=== PATIENT | female | born 1960 | race Caucasian/White ===

== ENCOUNTER 2016-11-17 05:26 | Day surgery (SDC) | payer BC, OTHER ==
[~2016-11-17] VITALS: Ht 152.4 cm; Wt 74.3 kg
--- NOTE | ~2016-11-17 | H ---
[facility] [place] [address] HISTORY AND PHYSICAL Name: TEA CAVAZOS Room #: 150-4 [facility]..#: [id number] Admission: 11/17/16 Attend Phys: Geremias Cristina MD Discharge: Date of : 60 Report #: [id number] THIS REPORT FOR: //name// CC: FAM unknown Geremias Cristina ANTICIPATED DATE OF SURGERY: 11/14/2016. CHIEF COMPLAINT: Chronic rhinosinusitis. HISTORY OF PRESENT ILLNESS: The patient presented to clinic in June of this year with a several year history of constant sinus and nasal airway obstruction despite use QNASL nasal spray, Afrin, Azelastine spray, Zyrtec and Singulair. She has already seen an chemical production machine operator who did not recommend any further treatment as her sinuses were "clear." At that time, she had likely had chronic sinusitis, poorly controlled allergic rhinitis with conservative course of long-term medical therapy with followup CT scan at that time. Return visit in July did demonstrate with her and her significant other, the CT scan showed bilateral maxillary sinusitis, mild ethmoid mucoperiosteal thickening and turbinate hypertrophy and at that time, given the option of the surgical therapy involving the above areas. We also discussed the following chemical production machine operator to start injections for her allergies at that time. However, she returned in September and despite aggressive allergy management, she continued to have recurrent chronic sinus symptoms response to therapy. At that point, we discussed the option of pursuing further surgical on the therapy and she agrees. Plan will be for bilateral maxillary balloon sinuplasties, bilateral turbinate reductions and limited anterior ethmoidectomies under anesthesia. ALLERGIES TO MEDICATION: DOXYCYCLINE, KEFLEX, LEVAQUIN, PENICILLIN AND SULFA. MEDICATIONS ON ADMISSION: Atorvastatin 10 mg once a day, Azelastine nasal spray 2 puffs each nares daily, Dulera as needed, gabapentin 300 mg t.i.d., meloxicam 7.5 mg daily, Singulair 10 mg once a day, omeprazole 20 mg once a day, QNASL steroid spray 2 puffs each nares b.i.d. and Zyrtec 10 mg once a day. PAST MEDICAL AND PAST SURGICAL HISTORY: Notable for previous tubes at the younger age. Medical history is notable for the above-mentioned allergies, acid reflux disease and migraines. PHYSICAL EXAMINATION: VITAL SIGNS: Height of 5 feet, weight 170 pounds and blood pressure 116/74. HEENT: Unremarkable within the oral cavity, oropharynx. Nares demonstrated bilateral inferior turbinate hypertrophy with inferiorly straight nasal septum. NECK: Normal to palpation. CHEST: Clear. CARDIOVASCULAR: Regular rhythm. [address] [address] HISTORY AND PHYSICAL Name: TEA CAVAZOS Room #: 150-4 [facility].#: [id number] Admission: 11/17/16 Attend Phys: Geremias Cristina MD Discharge: Date of : 60 Report #: [id number] ASSESSMENT: History of chronic and recurrent rhinosinusitis with allergic rhinitis. PLAN: Will be the above-mentioned surgery. <ELECTRONICALLY SIGNED> By: Geremias Cristina MD 11/17/16 0927 19 [id number] Geremias Cristina MD /nt
--- NOTE | ~2016-11-17 | O ---
[facility] [place] [address] OPERATIVE REPORT Name: TEA CAVAZOS Room #: 150-4 [facility]#: [id number] Admission: 11/17/16 Attend Phys: Geremias Cristina MD Discharge: Date of : 60 Report #: [id number] THIS REPORT FOR: //name// CC: FAM unknown Geremias Cristina DATE OF SERVICE: 11/17/2016 PREOPERATIVE DIAGNOSIS: Sinusitis. POSTOPERATIVE DIAGNOSIS: Sinusitis. PROCEDURE: Image guided endoscopic left nasal antral window, image-guided endoscopic right nasal antral window, image-guided endoscopic left anterior ethmoidectomy, image-guided endoscopic right anterior ethmoidectomy, bilateral submucosal inferior turbinate resection with outfracturing. SURGEON: Geremias Cristina MD. ANESTHESIA: General LMA. INDICATIONS: See H and P. FINDINGS: Mild purulence is noted within the left maxillary sinus. Polypoid mucosa was noted covering the ethmoid bulla and the lateral nasal wall bilaterally. Turbinate hypertrophy was observed. TECHNIQUE: After obtaining consent, the patient was brought to the operating suite, appropriate time out was performed. General LMA anesthesia was maintained throughout the case. Bed was turned 90 degrees. The nose was prepped and draped in usual sterile fashion. Afrin impregnated cottonoids were placed inside the nasal cavity for vasoconstriction. A 3 mL of 1% Xylocaine 1:100,000 epinephrine was injected along the lateral nasal wall and the anterior face of the middle turbinate and the medial edge of the inferior turbinates on both sides. After waiting several minutes, cottonoids were then removed. Registration of the [employer] image-guided system was applied with points selected and confirmed accuracy. Image guidance system was used a combination of the suction on image guidance as well as the microdebrider blade. Attention was first turned to the right naris with endoscopic evaluation. The right middle turbinate was identified and medialized with [place]. The uncinate process was brought forward with double ball and entered into the maxillary ostia. The uncinate process was removed with combination of a side biter and a microdebrider blade. I then enlarged the maxillary ostia with a side biter and freshened the edges with the microdebrider. I then performed a limited anterior ethmoidectomy first dilating the ethmoid bulla with the microdebrider inferiorly [address] [address] OPERATIVE REPORT Name: TEA CAVAZOS Yuan Room #: 150-4 [facility].#: [id number] Admission: 11/17/16 Attend Phys: Geremias Cristina MD Discharge: Date of : 60 Report #: [id number] and proceeding in a posterior direction until the ground lamella was dilated and proceeded to find normal appearing posterior ethmoid air cells and I then proceeded up superiorly towards the fovea ethmoidalis, then proceeded more anteriorly saucerizing and opening most of the anterior ethmoid air cells. It should be noted that none were fully involved with polyps, but there were polypoid mucosa throughout. I carried this laterally towards the middle turbinate and entered into the uppermost portions of the anterior ethmoid air cells and once again encountered normal mucosa, so I did not fully saucerized the anterior ethmoids on the right side. Upon completing the anterior ethmoidectomy and ensuring there was no devitalized bone or mucosa, a piece of Xerogel was placed between the middle turbinate and lateral nasal wall for hemostasis. I then take a caudal elevator and made a small incision in the anterior medial portion of the inferior turbinate and elevated the submucosal flap on the inferior turbinate. The microdebrider blade was then used to perform a submucous resection. [place] elevator was used to outfracture the middle turbinate and another piece of Xerogel was then placed over the inferior turbinate incision. Attention was then turned to the left side. Once again, a similar procedure was performed first identifying endoscopically the uncinate processes to bring this forward with a double ball and removing it with both microdebrider and the side biter. I then entered into the maxillary ostia where I immediately encountered some purulent material. Upon enlarging the maxillary ostia with a biter and a microdebrider, I evacuated all the purulent material. It should be noted the mucosa within the maxillary sinus appeared to be very pink and normal, however. I then proceeded to do a limited ethmoidectomy in a similar fashion as on the right side. There was less polypoid tissue noted on the left than the right. I then turned my attention to the inferior turbinate where it was reduced in a submucosal fashion and a similar on the right side. I checked hemostasis on the left side, it was found to be adequate. A single piece of Xerogel was then placed between the middle turbinate and the ethmoid defect and another one was placed over the inferior turbinate. After waiting several minutes, I checked again for hemostasis, was found to be adequate. The nasopharynx was suctioned free of secretions. She was then allowed to wake from anesthesia and recovery room in stable condition. ESTIMATED BLOOD LOSS: Approximately 20 mL. By: [id number] Geremias Cristina MD /nt
--- NOTE | ~2016-11-17 | S ---
[facility] [address] [place] [address] SURGICAL PATH RPT PROCEDURE Name: TEA CAVAZOS Room #: 150-4 [facility] M.R.#: [id number] Admission: 11/17/16 Date of : 60 Discharge: Report #: [id number] Path Case #: [id number] PATHOLOGY REPORT DRAFT COLLECTION DATE: 11/17/2016 RECEIVED DATE: 11/17/2016 SPECIMEN(S) RECEIVED: A.Bilateral sinus contents
[~2016-11-17 05:26] MED LIST: AGGRENOX 25 MG1 EACH PO; AZELASTINE205.5 MCG/ NASAL; BENADRYL25 MG PO; CO Q-10100 MG PO; KRILL OIL 1,001 EAC1 PO; KRILL OIL 3001 EACH PO; LIPITOR10 MG PO; MOBIC7.5 MG PO; NEURONTIN 300300 M1 PO; NEURONTIN600 MG PO; OMEPRAZOLE 20 M20 M1 PO; QNASL8.7 GM NASAL; SINGULAIR 10 MG10 M1 PO; ZYRTEC10 M5 PO
[2016-11-17 09:27] VITALS: BP 106/71
[2016-11-17 11:08] VITALS: BP 106/71
== END 2016-11-17 12:00 ==
LOC: EDSEX → OR 05:26 → TBA 05:26 → OR 09:57
DX: J32.8 Other chronic sinusitis (principal); J34.3 Hypertrophy of nasal turbinates; J33.8 Other polyp of sinus; J45.909 Unspecified asthma, uncomplicated; E78.00 Pure hypercholesterolemia, unspecified; I69.898 Other sequelae of other cerebrovascular disease; Z87.891 Personal history of nicotine dependence; Z96.652 Presence of left artificial knee joint; Z88.0 Allergy status to penicillin; Z88.2 Allergy status to sulfonamides; Z88.8 Allergy status to other drugs, medicaments and biological substances; Z88.1 Allergy status to other antibiotic agents; Z79.899 Other long term (current) drug therapy
CPT/HCPCS: 50101; 50286; 50398; 50573; 51634; 52290; 52291; 53618; 62110; 62900; 64037